=== PATIENT | female | born 1990 | race Caucasian/White ===

== ENCOUNTER 2023-11-23 19:29 | Emergency (ER) | payer SELFPAY ==
[~2023-11-23] VITALS: Ht 160 cm; Wt 105.2 kg
[2023-11-23] MEDS ORDERED: KETOROLAC TROMETHAMINE 30 MG/ML VIAL IV STA (20:35)
[2023-11-23] MEDS ORDERED: METHYLPREDNISOLONE SOD SUCC 125 MG/2ML VIAL IV STA (20:35)
[2023-11-23] MEDS ORDERED: SODIUM CHLORIDE 0.9% 1000ML 1,000 ML IV STA (20:35)
[2023-11-23] MEDS ORDERED: METOCLOPRAMIDE HCL 10 MG/2ML VIAL IV STA (20:35)
[2023-11-23] MEDS ORDERED: ACETAMINOPHEN 325 MG TAB PO STA (21:49)
[2023-11-23] MEDS ORDERED: PAXLOVID 300-11 EAC1 PO (21:53)
[2023-11-23] MEDS ORDERED: ACETAMINOPHEN 325 MG TAB ONE (21:53)
[2023-11-23] MEDS ORDERED: FIORICET 50-301 EACH PO (21:53)
[2023-11-23 22:06] VITALS: BP 134/89; PULSE 76; RESP 16; TEMP 98.4; O2SAT 100
== END 2023-11-23 22:30 | disposition home or self-care (01) ==
LOC: ER 19:35
DX: R51.9 Headache, unspecified (principal); U07.1 COVID-19; R11.2 Nausea with vomiting, unspecified; F41.9 Anxiety disorder, unspecified
CPT/HCPCS: 70450; 99284; U0002